=== PATIENT | female | born 1960 | race Caucasian/White ===

== ENCOUNTER 2017-10-10 16:09 | Emergency (ER) | payer BC ==
[2017-10-10 16:28] VITALS: BP 158/102
[2017-10-10] MEDS ORDERED: Acetaminophen TAB* 325 MG PO ONE (17:08)
--- NOTE | 2017-10-10 17:19 | ED ---
Abdominal Pain/Female - HPI Summary HPI Summary: 56 yr old female with cough and cold symptoms for a few days, and presents here with low abdominal pain, midline, associated fever and chills. She has increased urine frequency, but no dysuria, hesitancy. no NVD. She has had coughing. She denies prior abdominal surgery. - History of Current Complaint Chief Complaint: UCAbdominalPain Stated Complaint: ABDOMINAL PAIN/FEVER/NAUSEA Time Seen by Provider: 10/10/17 16:32 Hx Last Menstrual Period: n/a Allergies/Adverse Reactions: Allergies Allergy/AdvReac Type Severity Reaction Status Date / Time Amoxicillin [From Augmentin] Allergy Intermediate GI Upset Verified 09/22/15 14: 51 Clavulanic Acid Allergy Intermediate GI Upset Verified 10/10/17 16:28 [From Augmentin] Tetracycline Allergy Intermediate GI Upset Verified 09/22/15 14:51 Home Medications: Home Medications Fluticasone Furoate-Vilanterol [Breo Ellipta 200-25 Mcg/INH] 1 inh IN DAILY [History Confirmed 10/10/17] Levocetirizine Dihydrochloride [Xyzal Allergy 24Hr] 5 mg PO DAILY 10/10/17 [ History Confirmed 10/10/17] PMH/Surg Hx/FS Hx/Imm Hx Endocrine/Hematology History: Denies: Hx Diabetes, Hx Thyroid Disease Cardiovascular History: Reports: Hx Hypertension Respiratory History: Reports: Hx Asthma Denies: Hx Chronic Obstructive Pulmonary Disease (COPD) GI History: Denies: Hx Ulcer - Surgical History Surgery Procedure, Year, and Place: B/L KNEE surgery Infectious Disease History: No Infectious Disease History: Denies: Hx Hepatitis, Hx Human Immunodeficiency Virus (HIV), Traveled Outside the [place] in Last 30 Days - Family History Known Family History: Positive: Cardiac Disease, Hypertension - Social History Alcohol Use: Daily Alcohol Amount: 3-4 wine daily Substance Use Type: Reports: None Smoking Status (MU): Never Smoked Tobacco Review of Systems Positive: Fever, Chills Positive: Abdominal Pain All Other Systems Reviewed And Are Negative: Yes Physical Exam Triage Information Reviewed: Yes Vital Signs On Initial Exam: Initial Vitals Temp Pulse Resp BP Pulse Ox 99.1 F 125 28 158/102 96 10/10/17 16:18 10/10/17 16:18 10/10/17 16:18 10/10/17 16:18 10/10/17 16:18 Vital Signs Reviewed: Yes Appearance: Positive: Well-Appearing, No Pain Distress Skin: Positive: Warm, Skin Color Reflects Adequate Perfusion Head/Face: Positive: Normal Head/Face Inspection Eyes: Positive: EOMI Respiratory/Lung Sounds: Positive: Clear to Auscultation, Breath Sounds Present Cardiovascular: Positive: Tachycardia. Negative: Murmur Abdomen Description: Positive: Other: - tender low mid abdomen Musculoskeletal: Positive: Strength/ROM Intact Neurological: Positive: Sensory/Motor Intact, Alert, Oriented to Person Place, Time, CN Intact II-III Psychiatric: Positive: Normal - James Coma Scale Best Eye Response: 4 - Spontaneous Best Motor Response: 6 - Obeys Commands Best Verbal Response: 5 - Oriented Diagnostics - Vital Signs Vital Signs Temp Pulse Resp BP Pulse Ox 10/10/17 16:18 99.1 F 125 28 158/102 96 - Laboratory Lab Statement: Any lab studies that have been ordered have been reviewed, and results considered in the medical decision making process. Abdominal Pain Fem Course/Dx - Course Course Of Treatment: 56 yr old with low midline abdominal pain and tachycardia. JACKELYN Pelaze NP and recommend go to ER by ambulance. She signed out AMA with risk of delay of care, , disability, sepsis. - Diagnoses Provider Diagnoses: low midline abdominal pain, Tachycardia, Hypertension Discharge - Discharge Plan Condition: Good Disposition: AGAINST MEDICAL ADVICE Referrals: Jose Antonio Alvarado [Primary Care Provider] -
== END 2017-10-10 17:15 | disposition left against medical advice (07) ==
LOC: UCCORT 16:09
DX: R10.30 Lower abdominal pain, unspecified (principal); R00.0 Tachycardia, unspecified; I10 Essential (primary) hypertension; Z72.89 Other problems related to lifestyle
CPT/HCPCS: 99212; G0463

== ENCOUNTER 2018-01-01 15:44 | Emergency (ER) | payer BC ==
[2018-01-01 16:27] VITALS: BP 146/97
--- NOTE | 2018-01-01 16:58 | UC ---
UC General HPI - HPI Summary HPI Summary: pt c/o being ill with sinus pressure, yellow drainage and feverish for about 10 days. it began as a cold but is worsening. she has a cough and some wheezing as well, hx of asthma. no cp or sob. using rescue inhaler with good relief but does still wheeze - History of Current Complaint Hx Obtained From: Patient Hx Last Menstrual Period: n/a Onset/Duration: Gradual Onset Timing: Constant Pain Intensity: 0 Aggravating: nothing Associated Signs & Symptoms: Positive: Cough, Fever, Wheezing. Negative: Chest Pain, SOB <Barby Parnell - Last Filed: 01/01/18 16:59> <Ashlie Vernon - Last Filed: 01/01/18 19:08> - History of Current Complaint Chief Complaint: UCRespiratory Stated Complaint: UPPER RESPITORY Time Seen by Provider: 01/01/18 16:48 - Allergy/Home Medications Allergies/Adverse Reactions: Allergies Allergy/AdvReac Type Severity Reaction Status Date / Time tetracycline Allergy Intermediate GI Upset Verified 01/01/18 16:18 Home Medications: Home Medications Losartan TAB* [Cozaar TAB*] 100 mg PO DAILY 01/01/18 [History Confirmed 01/01/18 ] Rabeprazole Sodium [Aciphex] 20 mg PO QPM 01/01/18 [History Confirmed 01/01/18] PMH/Surg Hx/FS Hx/Imm Hx - Additional Past Medical History Additional PMH: arthritis Endocrine History: Hyperthyroidism Respiratory History: Asthma - Surgical History Surgical History: Yes Surgery Procedure, Year, and Place: B/L KNEE surgery. [facility] - Family History Known Family History: Positive: Cardiac Disease, Hypertension - Social History Lives: With Family Alcohol Use: Occasionally Alcohol Amount: 3-4 wine daily Substance Use Type: None Smoking Status (MU): Never Smoked Tobacco - Immunization History Most Recent Influenza Vaccination: current Vaccination Up to Date: Yes <Barby Parnell - Last Filed: 01/01/18 16:59> Review of Systems Constitutional: Fever, Chills, Fatigue Skin: Negative Eyes: Negative ENT: Sore Throat, Nasal Discharge, Sinus Congestion, Sinus Pain/Tenderness Respiratory: Cough Cardiovascular: Negative Gastrointestinal: Negative Genitourinary: Negative Motor: Negative Neurovascular: Negative Musculoskeletal: Negative Neurological: Negative Psychological: Negative Is Patient Immunocompromised?: No All Other Systems Reviewed And Are Negative: Yes <Barby Parnell - Last Filed: 01/01/18 16:59> Physical Exam Triage Information Reviewed: Yes Appearance: Well-Appearing Vital Signs: Initial Vital Signs Temp 97.9 F 01/01/18 16:20 Pulse 97 01/01/18 16:20 Resp 22 01/01/18 16:20 BP 146/97 01/01/18 16:20 Pulse Ox 96 01/01/18 16:20 Vital Signs Reviewed: Yes Eyes: Positive: Conjunctiva Clear ENT: Positive: Pharynx normal, Nasal congestion, TMs normal, Sinus tenderness. Negative: Nasal drainage Neck: Positive: Supple, Nontender, No Lymphadenopathy Respiratory: Positive: Lungs clear, Normal breath sounds, Other: - frequent npc. Cardiovascular: Positive: RRR, No Murmur Abdomen Description: Positive: Nontender, No Organomegaly, Soft Bowel Sounds: Positive: Present Musculoskeletal: Positive: ROM Intact Neurological: Positive: Alert Psychological: Positive: Age Appropriate Behavior Skin Exam: Normal <Barby Parnell - Last Filed: 01/01/18 16:59> Vital Signs: Initial Vital Signs Temp 97.9 F 01/01/18 16:20 Pulse 97 01/01/18 16:20 Resp 22 01/01/18 16:20 BP 146/97 01/01/18 16:20 Pulse Ox 96 01/01/18 16:20 <Ashlie Vernon - Last Filed: 01/01/18 19:08> Course/Dx - Differential Dx - Multi-Symptom Provider Diagnoses: sinusitis, asthma flare <Barby Parnell - Last Filed: 01/01/18 16:59> Discharge <Barby Parnell - Last Filed: 01/01/18 16:59> <Ashlie Vernon - Last Filed: 01/01/18 19:08> - Discharge Plan Condition: Stable Disposition: HOME Prescriptions: Amoxicillin/Clavulanate TAB* [Augmentin TAB 875*] 875 mg PO BID #20 tab predniSONE TAB* [Deltasone TAB*] 40 mg PO DAILY 3 Days #6 tab Patient Education Materials: Sinusitis (ED) Referrals: Jose Antonio Alvarado [Primary Care Provider] - 5 Days Attestation Statement User Type: Provider - I was available for consult. This patient was seen by the ABELARDO. The patient was not presented to, seen by, or examined by me. Peter <Ashlie Vernon - Last Filed: 01/01/18 19:08>
== END 2018-01-01 17:06 | disposition home or self-care (01) ==
LOC: UCCORT 15:44
DX: J32.9 Chronic sinusitis, unspecified (principal); J45.909 Unspecified asthma, uncomplicated; E05.90 Thyrotoxicosis, unspecified without thyrotoxic crisis or storm; Z88.1 Allergy status to other antibiotic agents
CPT/HCPCS: 99212; G0463